=== PATIENT | male | born 1960 | race Caucasian/White ===

== ENCOUNTER 2024-10-13 06:02 | Day surgery (SDC) | payer MEDICARE, OTHER, SELFPAY ==
--- OUTSIDE RECORDS SUMMARY | 2024-08-31 11:52 | XMS_ITS | Patient Health Record ---
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 Name Role Phone Too Hartmann MD Primary Care Provider Unavailab Alejandra Benitez Unavailable [phone] Allergies No Known Allergies Reason For Referral No Information Medications Medication SIG (Take, Route, Frequency, Duration) Notes Start Date End Date Status Clorazepate Dipotassium 7.5 MG 1 tablet Orally Once a day Active Zaleplon 10 MG 1 capsule at bedtime as needed Orally Once a day Active buPROPion HCl ER (XL) 400 mg, on ce in AM Active QUEtiapine Fumarate 100 MG 1 tablet at bedtime Orally Once a day; Duration: 30 day(s) Active Colace 100 MG 1 capsule as needed Orally Once a day; Duration: 30 day(s) Active Melatonin 5 MG 1 tablet in the evening Orally Once a day; Duration: 30 day(s) Active Cetirizine HCl 10 MG 1 tablet Orally Onc e a day; Duration: 30 day(s) Active Propranolol HCl ER 60 MG 1 capsule Orally Once a day; Duration: 30 day(s) Active Omeprazole 20 MG 1 capsule 30 minutes before morning meal Orally Once a day; Duration: 30 day(s) Active buPROPion HCl Active Sertraline HCl Activ e Atorvastatin Calcium 20 MG 1 tablet Orally Once a day; Duration: 30 day(s) Active Sertraline HCl 200 mg, once at bedtime Active Banophen 50 MG 1 capsule at bedtime as needed Orally Once a day; Duration: 30 day(s) Active Tylenol Active Baclofen 10 MG/20ML as directed Intrathecal Active Tamsulosin HCl 0.4 MG 1 capsule Orally Once a day; Duration: 30 day(s) Active Immunizations Vaccine Route Administration Date Status Comme nts COVID-19 Moderna Vaccine Unknown 04/21/2020 Administere d 1st 03/24/2020 Social History Tobacco Use: Social History Observation Description Date Details (start date - stop date) Never Smoker NA - NA Tobacco Use/Smoking Question Answer Notes Are you a: nonsmoker Additional Findings: Tobacco Non-User Current no n-smoker Alcohol Screen Question Answer Notes Did you have a drink containing alcohol in the p ast year? No Points 0 Interpretation Negative Tobacco use other than smoking: Question Answer Notes Are you an other tobacco user? No Problems Problem Type SNOMED Code ICD Code Onset Dates Problem Status W/U Status Risk Notes Problem Pain in limb (33779269) Pain in unspecified foot (M79.673) Active confirmed Problem Non-pressure chronic ulcer of other part of right foot limited to breakdown of skin (L97.511) Active confirmed Plan Of Treatment Pending Test Test Name Order Date 95672- Debride <25 sq cm 10/19/2020 89177 I&D ABSCESS- SIMPLE,SINGLE 021 Insurance Providers Payer Name Payer Address Payer Phone Subscriber Number Group Number Insured Name Patient Relationship to Insured Coverage Start Date Coverage End Date [facility] [address] [place] [address] [phone] [id number] Joel Gordon Self - patient is the insured Medical (General) History Medical History History ICD Code Anxiety Cataracts Depression High blood pressure chronic sinusitis Mumps Chicken pox Surgical History Surgery Date(Month/Year) cataract surgery [phone] wisdom teeth extraction 1975
--- OUTSIDE RECORDS SUMMARY | 2024-08-31 11:53 | XMS_ITS | Patient Health Record ---
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 Name Role Phone Tres Osuna MD Primary Care Provider Bjorn Owen Unavailable [phone] Allergies No Known Allergies Reason For Referral No Information Medications Medication SIG (Take, Route, Frequency, Duration) Notes Start Date End Date Status Melatonin 5 MG 1 tablet in the even ing Orally Once a day Active Sertraline HCl 100 MG 1 tablet Orally On ce a day Active Valsartan 80 MG 1 tablet Orally Once a day Active Propranolol HCl 10 MG 1 tablet Orally On ce a day Active QUEtiapine Fumarate 100 MG 1 tablet Oral ly Once a day Active buPROPion HCl 100 MG 1 tablet Orally Twi ce a day Active Cetirizine HCl 10 MG 1 tablet Orally Onc e a day Active Finasteride 5 MG 1 tablet Orally Once a day Active Clorazepate Dipotassium 7.5 MG 1 tablet Orally Twice a day Active Betamethasone Dipropionate 0.05 % 1 application Externally Once a day Active Baclofen 10 MG/20ML as directed Intrathecal Active Tamsulosin HCl 0.4 MG 1 capsule Orally O nce a day Active Albuterol Sulfate HFA 108 (90 Base) MCG/ACT 1 puff as needed Inhalation every 4 hrs Active Atorvastatin Calcium 40 MG 1 tablet Oral ly Once a day for 30 days Active Zaleplon 10 MG 1 capsule at bedtime as needed Orally Once a day Active Fluticasone Propionate (Inhal) 50 MCG/ACT 1 puff Inhalation Twice a day Active Immunizations Vaccine Route Administration Date Status Comme nts Influenza Unknown 10/28/2018 Administered Influenza Unknown 11/04/2023 Administered Problems Problem Type SNOMED Code ICD Code Onset Dates Problem Status W/U Status Risk Notes Problem [id number] Encounter for screening for malignant neoplasm of colon (Z12.11) Active confirmed Problem [id number] Preprocedural examination (Z01.818) Active confirmed Problem 053368999 Family history o f colon cancer (Z80.0) Active confirmed Problem 407552852 Hx of adenomatou s colonic polyps (Z86.010) Active confirmed Vital Signs Temperature 98.9 degrees Fahrenheit 07/14/2024 Blood pressure diastolic 01 mm Hg 07/14/2024 Height 70.25 in 07/14/2024 Blood pressure systolic 001 mm Hg 07/14/2024 Weight 247.8 lbs 07/14/2024 BMI 35.3 kg/m2 07/14/2024 Procedures Procedure Date Ordered Date Performed Result Body Sit e COLONOSCOPY 07/14/2024 N/A Encounters Encounter Location Date Provider Diagnosis [facility] [address] [place] [phone] 07/14/2024 Bjorn Ceron Hx of adenomatous colonic polyps Z86.010 ; Preprocedural examination Z01.818 ; Family history of colon cancer Z80.0 and Encounter for screening for malignant neoplasm of colon Z12.11 [facility] [address] [place] [phone] 06/10/2024 Bjorn Ceron Assessments Encounter Date Diagnosis (ICD Code) Assessment Notes Treatment Notes Treatment Clinical Notes Section Notes 07/14/2024 Preprocedural examination (ICD-10 - Z01.818) Overall, Julian appears well. Given his personal history of tubular adenomas, significant family history of colorectal cancer and polyps, and his last colonoscopy being over 5 years ago, I did recommend a follow-up colonoscopy for further screening purposes. We did review the rationale for this in regard to colon cancer prevention. Full consent has been taken for this, including risks of bleeding and perforation. The procedure will be done with monitored anesthesia care. Julian was comfortable with this plan. Thank you again for allowing me to participate in Julian's care. I shall continue to keep you advised of his progress. 07/14/2024 Hx of adenomatous colonic polyps (ICD-10 - Z86.010) Overall, Julian appears well. Given his personal history of tubular adenomas, significant family history of colorectal cancer and polyps, and his last colonoscopy being over 5 years ago, I did recommend a follow-up colonoscopy for further screening purposes. We did review the rationale for this in regard to colon cancer prevention. Full consent has been taken for this, including risks of bleeding and perforation. The procedure will be done with monitored anesthesia care. Julian was comfortable with this plan. Thank you again for allowing me to participate in Julian's care. I shall continue to keep you advised of his progress. 07/14/2024 Family history of colon cancer (ICD-10 - Z80.0) Overall, Julian appears well. Given his personal history of tubular adenomas, significant family history of colorectal cancer and polyps, and his last colonoscopy being over 5 years ago, I did recommend a follow-up colonoscopy for further screening purposes. We did review the rationale for this in regard to colon cancer prevention. Full consent has been taken for this, including risks of bleeding and perforation. The procedure will be done with monitored anesthesia care. Julian was comfortable with this plan. Thank you again for allowing me to participate in Julian's care. I shall continue to keep you advised of his progress. 07/14/2024 Encounter for screening for malignant neoplasm of colon (ICD-10 - Z12.11) Overall, Julian appears well. Given his personal history of tubular adenomas, significant family history of colorectal cancer and polyps, and his last colonoscopy being over 5 years ago, I did recommend a follow-up colonoscopy for further screening purposes. We did review the rationale for this in regard to colon cancer prevention. Full consent has been taken for this, including risks of bleeding and perforation. The procedure will be done with monitored anesthesia care. Julian was comfortable with this plan. Thank you again for allowing me to participate in Julian's care. I shall continue to keep you advised of his progress. Plan Of Treatment Pending Test Test Name Order Date COLONOSCOPY 07/14/2024 LIVER PROFILE 03/13/2012 AMYLASE 03/13/2012 LIPASE 03/13/2012 CBC w DIFF 03/13/2012 Future Test Test Name Order Date COLONOSCOPY 03/26/2019 Next Appt Details Provider Name:Bjorn Jennings Jie , 10/13/2024 08:30:00 AM, [address] [place] [address] , [place], [place], [id number], Insurance Providers Payer Name Payer Address Payer Phone Subscriber Number Group Number Insured Name Patient Relationship to Insured Coverage Start Date Coverage End Date MEDICARE OF [place] [address] [place] [address] [id number] JULIAN DURAN Self - patient is the insured [employer] [address] [place] [phone] [id number] JULIAN DURAN Self - patient is the insured Medical (General) History Medical History History ICD Code Screening colonoscopy 11-5-2 010 was negative for polyps-there was moderate sigmoid diverticulosis and internal hemorrhoids. Hyperlipidemia Anxiety/tremor-uses propranolol Denies MS,DM,CVA,Lung disease,renal dise ase EGD in February of 2012-this was negative for any gastritis, H. pylori, ulcer disease, esophagitis, nor significant hiatal hernia Negative abdominal ultrasoun d and laboratories in March 2012 in regard to his left upper quadrant pain. Prostatitis 02/2019-treated with Cipro BPH Colonoscopy 09/2014 with removal of a cec al tubular adenoma Colonoscopy 05/2019 2 small tubular adeno ma HTN Surgical History Surgery Date(Month/Year) wisdom teeth tonsils and adenoids
[2024-10-11 13:17] VITALS: BMI 35.3
--- NOTE | 2024-10-12 09:00 | P.CONAN_ITS ---
HPI - Anesthesia Eval Consult details Narrative: 64yo M for [facility] Past Medical History Medical History BPH (benign prostatic hyperplasia) HTN (hypertension) Tremor Hyperlipidemia Anxiety Surgical History Surgical History Hx of wisdom tooth extraction History of tonsillectomy and adenoidectomy History of esophagogastroduodenoscopy (EGD) H/O colonoscopy Social History Social History Household Members: Spouse Patient Tobacco Use Status: Never used Tobacco Have you been hit, kicked, punched, or otherwise hurt by someone within the past year? If so, by whom?: No Are you DNR?: No Advance Directives: No Advance Directives Information Provided: Yes Meds Allergies Allergy/AdvReac Type Severity Reaction Status Date / Time No Known Allergies Allergy Unverified 11/04/19 14:42 Home Medications ?Medication ?Instructions ?Recorded ?Confirmed ?Last Taken ?Type albuterol sulfate 90 mcg/actuation 2 puff inhalation Q 6H PRN 10/11/24 10/11/24 Unknown History aerosol inhaler Shortness Of Breath atorvastatin 40 mg tablet 40 mg PO DAILY 10/11/2409/18 Unknown History baclofen 10 mg tablet 10 mg PO Q12H 10/11/2410/11 Unknown History bupropion HCl 100 mg tablet,12 hr 100 mg PO QAM 10/11/24 Unknown History sustained-release bupropion HCl 300 mg 24 hr tablet, 300 mg PO QAM 10/1110/11/24 Unknown History extended release cetirizine 10 mg tablet 10 mg PO DAILY 10/11/2409/18 Unknown History clorazepate dipotassium 7.5 mg 7.5 mg PO BID 10/11/24 10/11/24 Unknown History tablet finasteride 5 mg tablet 5 mg PO DAILY 10/11/2410/11 Unknown History propranolol 60 mg capsule,24 60 mg PO DAILY 10/11/24 0 10/11/24 Unknown History hr,extended release quetiapine 100 mg tablet 100 mg PO BEDTIME 10/11/24 0 10/11/24 Unknown History sertraline 100 mg tablet 200 mg PO BEDTIME 10/11/24 0 10/11/24 Unknown History tamsulosin 0.4 mg capsule 0.8 mg PO DAILY 10/11/24 Unknown History valsartan 80 mg tablet 80 mg PO DAILY 10/11/24 08/07/1110/13/24 History zaleplon 10 mg capsule 10 mg PO BEDTIME PRN Insomni a 10/11/24 10/11/24 Unknown History Exam Height,Weight and Vital Signs: Height 5 ft 10.25 in Weight 112.4 kg Assessment and Plan Assessment Anesthesia Assessment: Chart Reviewed
--- NOTE | 2024-10-12 09:00 | HO.ANESPROP2 ---
HPI - Anesthesia Eval Consult details Narrative: 64yo M for Colonoscopy [facility] Past Medical History Medical History BPH (benign prostatic hyperplasia) HTN (hypertension) Tremor Hyperlipidemia Anxiety Surgical History Surgical History Hx of wisdom tooth extraction History of tonsillectomy and adenoidectomy History of esophagogastroduodenoscopy (EGD) H/O colonoscopy Social History Social History Household Members: Spouse Patient Tobacco Use Status: Never used Tobacco Have you been hit, kicked, punched, or otherwise hurt by someone within the past year? If so, by whom?: No Are you DNR?: No Advance Directives: No Advance Directives Information Provided: Yes Meds Allergies Allergy/AdvReac Type Severity Reaction Status Date / Time No Known Allergies Allergy Unverified 11/04/19 14:42 Home Medications ?Medication ?Instructions ?Recorded ?Confirmed ?Last Taken ?Type albuterol sulfate 90 mcg/actuation 2 puff inhalation Q6H PRN 10/11/24 10/11/24 Unknown History aerosol inhaler Shortness Of Breath atorvastatin 40 mg tablet 40 mg PO DAILY 10/11/24 10/11/24 Unknown History baclofen 10 mg tablet 10 mg PO Q12H 10/11/24 10/11/24 Unknown History bupropion HCl 100 mg tablet,12 hr 100 mg PO QAM 10/11/24 10/11/24 Unknown History sustained-release bupropion HCl 300 mg 24 hr tablet, 300 mg PO QAM 10/11/24 10/11/24 Unknown History extended release cetirizine 10 mg tablet 10 mg PO DAILY 10/11/24 10/11/24 Unknown History clorazepate dipotassium 7.5 mg 7.5 mg PO BID 10/11/24 10/11/24 Unknown History tablet finasteride 5 mg tablet 5 mg PO DAILY 10/11/24 10/11/24 Unknown History propranolol 60 mg capsule,24 60 mg PO DAILY 10/11/24 10/11/24 Unknown History hr,extended release quetiapine 100 mg tablet 100 mg PO BEDTIME 10/11/24 10/11/24 Unknown History sertraline 100 mg tablet 200 mg PO BEDTIME 10/11/24 10/11/24 Unknown History tamsulosin 0.4 mg capsule 0.8 mg PO DAILY 10/11/24 10/11/24 Unknown History valsartan 80 mg tablet 80 mg PO DAILY 10/11/24 10/11/24 10/13/24 History zaleplon 10 mg capsule 10 mg PO BEDTIME PRN Insomnia 10/11/24 10/11/24 Unknown History Exam Height,Weight and Vital Signs: Height 5 ft 10.25 in Weight 112.4 kg Assessment and Plan Assessment Anesthesia Assessment: Chart Reviewed
[2024-10-13 06:12] VITALS: BP 131/65; PULSE 63; RESP 20; TEMP 36.1; O2SAT 94
[2024-10-13 06:13] VITALS: BMI 34.6
[2024-10-13] MEDS: Lactated Ringers 1,000 ML 100 ML IVCONT (06:23)
--- NOTE | 2024-10-13 07:29 | HO.ANESPROP2 ---
[facility] Past Medical History Medical History BPH (benign prostatic hyperplasia) HTN (hypertension) Tremor Hyperlipidemia Anxiety Functional capacity: independent ambulation Family History Family history of problems with anesthesia: No Surgical History Surgical History Hx of wisdom tooth extraction History of tonsillectomy and adenoidectomy History of esophagogastroduodenoscopy (EGD) H/O colonoscopy History of Problems with Anesthesia: No Social History Social History Household Members: Spouse Patient Tobacco Use Status: Never used Tobacco Have you been hit, kicked, punched, or otherwise hurt by someone within the past year? If so, by whom?: No Are you DNR?: No Advance Directives: No Advance Directives Information Provided: Yes Meds Allergies Allergy/AdvReac Type Severity Reaction Status Date / Time No Known Allergies Allergy Unverified 11/04/19 14:42 Active Medications: Current Medications Lactated Ringer's (Lr) 1,000 mls @ 100 mls/hr IVCONT .Q10H MICHAEL Last Admin: 10/13/24 06:23 Dose: 100 mls/hr Sodium Biphosphate/Sodium Phosphate (Sodium Phosphate,Gilmer-Dibasic 133 Ml Enema) 133 ml AL ONCE PRN PRN Reason: Poor Colonoscopy Prep Results Home Medications ?Medication ?Instructions ?Recorded ?Confirmed ?Last Taken ?Type albuterol sulfate 90 mcg/actuation 2 puff inhalation Q6H PRN 10/11/24 10/11/24 Unknown History aerosol inhaler Shortness Of Breath atorvastatin 40 mg tablet 40 mg PO DAILY 10/11/24 10/11/24 Unknown History baclofen 10 mg tablet 10 mg PO Q12H 10/11/24 10/11/24 Unknown History bupropion HCl 100 mg tablet,12 hr 100 mg PO QAM 10/11/24 10/11/24 Unknown History sustained-release bupropion HCl 300 mg 24 hr tablet, 300 mg PO QAM 10/11/24 10/11/24 Unknown History extended release cetirizine 10 mg tablet 10 mg PO DAILY 10/11/24 10/11/24 Unknown History clorazepate dipotassium 7.5 mg 7.5 mg PO BID 10/11/24 10/11/24 Unknown History tablet finasteride 5 mg tablet 5 mg PO DAILY 10/11/24 10/11/24 Unknown History propranolol 60 mg capsule,24 60 mg PO DAILY 10/11/24 10/11/24 Unknown History hr,extended release quetiapine 100 mg tablet 100 mg PO BEDTIME 10/11/24 10/11/24 Unknown History sertraline 100 mg tablet 200 mg PO BEDTIME 10/11/24 10/11/24 Unknown History tamsulosin 0.4 mg capsule 0.8 mg PO DAILY 10/11/24 10/11/24 Unknown History valsartan 80 mg tablet 80 mg PO DAILY 10/11/24 10/11/24 10/13/24 History zaleplon 10 mg capsule 10 mg PO BEDTIME PRN Insomnia 10/11/24 10/11/24 Unknown History Exam Height,Weight and Vital Signs: Height 5 ft 10.25 in Weight 110.223 kg Last Vital Signs Temp 97 F 10/13/24 06:12 Pulse 63 10/13/24 06:12 Resp 20 10/13/24 06:12 BP 131/65 10/13/24 06:12 Pulse Ox 94 10/13/24 06:12 O2 Del Method Room Air 10/13/24 06:12 Airway Mallampati Class: IV TM Dist: >3cm Neck ROM: Full Heart: RRR Lungs: CTJa Assessment and Plan Assessment Anesthesia Assessment: Anesthesia Plan Discussed Final Anesthetic Review Family History of Problems with Anesthesia: No History of Problems with Anesthesia: No NPO: Yes ASA Class: III Final Preanesthetic Review: Meds/Allgs Chart Reviewed, Consent Obtained/Reviewed and Anes Risks/Benef Reviewed Patient Risk: Intermediate Procedure Risk: Low Anesthetic Plan Anesthetic Plan: MAC: Disposition: Standard PACU
[2024-10-13 08:35] VITALS: BP 91/58; PULSE 65; RESP 16; TEMP 36.4; O2SAT 95
--- NOTE | 2024-10-13 08:39 | P.BOP_ITS ---
Brief Operative Note Date of Service: 10/13/24 Pre-op diagnosis: Screening Post-op diagnosis: other (Polyps) Procedure: Colonoscopy to the cecum and TI with bx/removal of polyps, and hot snare polypectomy at 20cm Surgeon: Bjorn Ceron MD Anesthesia: MAC Was an Director Of Teacher Education used for this Procedure?: No Estimated blood loss (mL): 2.0 Pathology: other (A. Transverse colon polyps B. Polyps at 60cm C. Polyp at 20cm) Condition: stable Disposition: PACU
[2024-10-13 08:50] VITALS: BP 115/69; PULSE 63; RESP 16; O2SAT 94
[2024-10-13 09:05] VITALS: BP 119/63; PULSE 60; RESP 16; TEMP 36.4; O2SAT 94
--- NOTE | 2024-10-13 09:35 | OP_ITS ---
DATE OF SERVICE: 10/13/2024 SURGEON: Bjorn Ceron MD INDICATIONS: The patient presents for evaluation of colorectal cancer screening and personal history of tubular adenomas of the colon. Full consent has been obtained from him for this, including risks of bleeding and perforation. PREOPERATIVE DIAGNOSIS: POSTOPERATIVE DIAGNOSIS: PROCEDURE PERFORMED: Colonoscopy to the cecum and terminal ileum with hot snare polypectomy at 20 cm and biopsy and removal of polyps. ESTIMATED BLOOD LOSS: COMPLICATIONS: ANESTHESIA: Medication used, monitored anesthesia care. ASSISTANTS: SPECIMENS: PREOPERATIVE DIAGNOSES: Colorectal cancer screening and personal history of tubular adenomas of the colon. POSTOPERATIVE DIAGNOSES: Colorectal cancer screening and personal history of tubular adenomas of the colon, colon polyps, diverticulosis, and internal hemorrhoids. DESCRIPTION OF PROCEDURE: The patient was placed in the left lateral decubitus position. The digital rectal exam revealed no abnormalities. The Olympus video pediatric colonoscope was entered into the rectum and advanced easily to the cecum. Once in the cecum, I did identify normal-appearing cecal pouch with appendiceal orifice and a normal-appearing ileocecal valve. The terminal ileum was cannulated and appeared normal. The scope was withdrawn back in the colon. The entire cecum and ileocecal valve appeared normal. Scope was slowly withdrawn assessing all mucosal surfaces carefully. Preparation was excellent. In the transverse colon were 2 flat, less than 5 mm polyps, which were each biopsied and completely removed with a cold biopsy forceps. At 60 cm were 2 less than 5 mm polyps which were each biopsied and completely removed with a cold biopsy forceps. At 20 cm was an approximately 10 mm polyp on a short stalk, which was removed by hot snare polypectomy and recovered by suction. The polypectomy site appeared clean, without any sign of residual polyp nor bleeding. I did not visualize any other polyps, colitis, nor angiodysplasia. There was a mild amount of sigmoid diverticulosis. In the rectum, scope was retroflexed visualizing internal hemorrhoids, but no other pathology. The rectal mucosa appeared normal. Scope was straightened and withdrawn from the patient. He tolerated the procedure well and was returned to the recovery area in stable condition. IMPRESSION: 1. Colon polyps. 2. Diverticulosis. 3. Internal hemorrhoids. PLAN: The results of the pathology will be checked. I would recommend a repeat colonoscopy in 5 years for further screening. He was advised not to use any aspirin nor NSAIDs for 1 week. MD ELOY Ramirez/SHILPI / [id number] MILY
== END 2024-10-13 09:45 | disposition home or self-care (01) ==
PROVIDERS: PCP Internal Medicine; Visit Provider Internal Medicine
PROC: 0DJD8ZZ Inspection of Lower Intestinal Tract, Via Natural or Artificial Opening Endoscopic (ICD-10-PCS; CPT 45378; principal; 2024-10-13 07:30)
DX: Z12.11 Encounter for screening for malignant neoplasm of colon (principal); D12.3 Benign neoplasm of transverse colon; D12.4 Benign neoplasm of descending colon; D12.5 Benign neoplasm of sigmoid colon; K57.30 Diverticulosis of large intestine without perforation or abscess without bleeding; K64.8 Other hemorrhoids; Z86.0101 Personal history of adenomatous and serrated colon polyps; Z80.0 Family history of malignant neoplasm of digestive organs; Z83.719 Family history of colon polyps, unspecified; I10 Essential (primary) hypertension; E78.5 Hyperlipidemia, unspecified; Z79.02 Long term (current) use of antithrombotics/antiplatelets; Z79.899 Other long term (current) drug therapy
CPT/HCPCS: 45385; 45380; 88305; J0461; J2003; J2704